=== PATIENT | female | born 1985 | race Caucasian/White ===

== ENCOUNTER 2022-12-01 19:29 | Emergency (ER) | payer OTHER ==
[~2022-12-01] VITALS: Ht 170.2 cm; Wt 77.1 kg
[2022-12-01 20:18] VITALS: BP 132/79
--- NOTE | 2022-12-01 20:18 | NUR ---
BIBS FOR ON AND OFF L SIDED SHARP CP SINCE YESTERDAY
--- NOTE | 2022-12-01 20:51 | NUR ---
Patient discharged to home in stable condition. Written and verbal after care instructions given. Patient verbalizes understanding of instruction.
== END 2022-12-01 20:51 | disposition home or self-care (01) ==
LOC: ER 19:37
DX: R07.89 Other chest pain (principal); Z88.1 Allergy status to other antibiotic agents; Z88.2 Allergy status to sulfonamides